=== PATIENT | male | born 2000 | race African-American/Black ===

== ENCOUNTER 2024-06-05 16:39 | Inpatient (IN) ==
[2024-06-05] MEDS: INSULIN REGULAR, HUMAN 1 UNIT/0.01 ML UNIT SQ ONE (17:49)
[2024-06-05 18:02] LABS: POC Calcium, Ionized 1.22 (1.16-1.32); POC Creatinine 0.9 (0.6-1.2); POC Potassium 3.6 (3.3-5.1)
[2024-06-05 18:25] LABS: ALT/SGPT 8 U/L (<40); AST/SGOT 9 U/L (<40); Albumin 4.2 gm/dL (3.2-5.2); Alkaline Phosphatase 198 U/L (39-117); Bilirubin,Direct < 0.2 mg/dL (0-0.3); Bilirubin,Total 0.4 mg/dL (0.1-1.0)
[2024-06-05] MEDS: 0.9 % SODIUM CHLORIDE 1,000 ML IV ONE ×2 (18:31→20:13)
[2024-06-05] MEDS: POTASSIUM CHLORIDE 20 MEQ TABLET PO ONE ×2 (18:31→20:53)
[2024-06-05 19:14] LABS: ALT/SGPT 9 U/L (<40); AST/SGOT 10 U/L (<40); Albumin 4.1 gm/dL (3.2-5.2); Albumin/Globulin Ratio 1.9 (1.0-2.3); Alkaline Phosphatase 196 U/L (39-117); Bilirubin,Total 0.4 mg/dL (0.1-1.0); Blood Urea Nitrogen 11 mg/dL (6-20); Calcium 8.3 mg/dL (8.6-10.4); Carbon Dioxide 6 mmol/L (22-30); Chloride 97 mmol/L (96-108); Globulin 2.2 gm/dL (2.2-3.7); Glomerular Filtration Rate 94; Glucose 709 mg/dL (70-105); Potassium 3.6 mmol/L (3.3-5.1); Sodium 130 mmol/L (133-145)
[2024-06-05] MEDS ORDERED: INSULIN REGULAR, HUMAN 50 UNIT in 0.9 % SODIUM CHLORIDE 99.5 ML IV SCH (19:15)
[2024-06-05] MEDS: INSULIN REGULAR, HUMAN 50 UNIT in 0.9 % SODIUM CHLORIDE 99.5 ML IV SCH (19:28)
[2024-06-05 19:30] LABS: Basophils # (Auto) 0.06 K/mcL (0.00-0.30); Basophils % (Auto) 0.9 % (0.0-2.0); Eosinophils # (Auto) 0.01 K/mcL (0.00-0.70); Eosinophils % (Auto) 0.1 % (0.0-7.0); Hematocrit 37.8 % (40.1-51.0); Hemoglobin 14.1 g/dL (13.7-17.5); Lymphocytes # (Auto) 0.67 K/mcL (1.50-4.80); Lymphocytes % (Auto) 9.9 % (15.5-49.0); Mean Cell Volume 88.3 fL (80.0-100.0); Mean Corpuscular HGB Conc 37.3 g/dL (31.0-36.0); Mean Platelet Volume 10.6 fL (8.8-12.5); Monocytes # (Auto) 0.59 K/mcL (0.10-0.90); Monocytes % (Auto) 8.7 % (1.0-12.0); Neutrophils % (Auto) 79.8 % (38.0-78.0); Platelet Count 210 K/mcL (140-440); RBC 4.28 M/mcL (4.63-6.08); Red Cell Distribution Width 14.6 % (11.5-14.5); WBC 6.8 K/mcL (4.5-11.0)
[2024-06-05 19:36] LABS: Beta Hydroxybutyrate 8.93 mmol/L (<0.27)
[2024-06-05] MEDS ORDERED: DEXTROSE 50% 50 ML VIAL IV PRN ×2 (20:26→20:46)
[2024-06-05] MEDS: DEXTROSE 50% 50 ML VIAL IV PRN (20:52)
[2024-06-05] MEDS: DEXTROSE 50% 50 ML SYRINGE IV ONE (20:54)
[2024-06-05] MEDS: DEXTROSE 5%-1/2NS W/40MEQ KCL 1,000 ML IV SCH (21:02)
[2024-06-05] MEDS: INSULIN GLARGINE, HUMAN 1 UNIT/0.01 ML SQ ONE ×2 (21:06→21:07)
[2024-06-05] MEDS ORDERED: ONDANSETRON 4 MG/2 ML VIAL IV PRN (21:15)
[2024-06-05] MEDS ORDERED: MAGNESIUM HYDROXIDE 30 ML ORAL.SUSP PO PRN (21:15)
[2024-06-05] MEDS ORDERED: SENNOSIDES 1 TABLET PO PRN (21:15)
[2024-06-05 21:17] LABS: Blood Urea Nitrogen 9 mg/dL (6-20); Calcium 7.7 mg/dL (8.6-10.4); Carbon Dioxide 10 mmol/L (22-30); Chloride 108 mmol/L (96-108); Glomerular Filtration Rate 105; Glucose 214 mg/dL (70-105); Sodium 138 mmol/L (133-145)
[2024-06-05 21:19] LABS: Hemoglobin A1C 12.6 % Hgb (4.0-6.0)
[2024-06-05] MEDS: 0.45 % SODIUM CHLORIDE 1,000 ML IV SCH (21:21)
[2024-06-05] MEDS: POTASSIUM CHLORIDE 20 MEQ/10 ML VIAL IV ONE ×2 (21:21→23:24)
[2024-06-05] MEDS ORDERED: POTASSIUM CHLORIDE 40 MEQ in 0.45 % SODIUM CHLORIDE 1,000 ML IV PRN (21:30)
[2024-06-05 21:40] LABS: POC Calcium, Ionized 1.23 (1.16-1.32); POC Creatinine 0.8 (0.6-1.2); POC Potassium 3.1 (3.3-5.1)
[2024-06-05] MEDS: POTASSIUM CHLORIDE 20 MEQ PACKET PO ONE ×2 (21:43→23:06)
[2024-06-05] MEDS: 0.9 % SODIUM CHLORIDE 10 ML SYRINGE IV SCH (21:44)
[2024-06-05] MEDS ORDERED: NICOTINE POLACRILEX 2 MG GUM CHEW/PARK PRN (22:24)
[2024-06-05 22:37] LABS: POC Calcium, Ionized 1.24 (1.16-1.32); POC Creatinine 0.8 (0.6-1.2); POC Potassium 3.5 (3.3-5.1)
[2024-06-05] MEDS: POTASSIUM CHLORIDE 20 MEQ PACKET ONE (23:24)
[2024-06-05 23:49] LABS: POC Calcium, Ionized 1.26 (1.16-1.32); POC Creatinine 0.6 (0.6-1.2)
[2024-06-06] MEDS: POTASSIUM PHOSPHATE 20 MEQ in DEXTROSE 5% IN WATER 250 ML IV ONE (00:36)
[2024-06-06] MEDS: POTASSIUM PHOSPHATE 66 MEQ/15 ML VIAL IV ONE (00:37)
[2024-06-06 04:55] LABS: ALT/SGPT 7 U/L (<40); AST/SGOT 10 U/L (<40); Albumin 3.6 gm/dL (3.2-5.2); Albumin/Globulin Ratio 2.3 (1.0-2.3); Alkaline Phosphatase 140 U/L (39-117); Bilirubin,Direct < 0.2 mg/dL (0-0.3); Bilirubin,Total 0.4 mg/dL (0.1-1.0); Blood Urea Nitrogen 8 mg/dL (6-20); Calcium 8.2 mg/dL (8.6-10.4); Carbon Dioxide 14 mmol/L (22-30); Chloride 111 mmol/L (96-108); Globulin 1.6 gm/dL (2.2-3.7); Glomerular Filtration Rate 126; Glucose 208 mg/dL (70-105); Lactate Dehydrogenase 123 U/L (135-225); Phosphorous 2.5 mg/dL (2.5-4.5); Potassium 3.5 mmol/L (3.3-5.1); Sodium 138 mmol/L (133-145); Triglycerides 603 mg/dL (<150); Uric Acid 1.1 mg/dL (2.5-8.0)
[2024-06-06 06:12] LABS: Basophils # (Auto) 0.03 K/mcL (0.00-0.30); Basophils % (Auto) 0.8 % (0.0-2.0); Eosinophils # (Auto) 0.08 K/mcL (0.00-0.70); Eosinophils % (Auto) 2.1 % (0.0-7.0); Hemoglobin 12.4 g/dL (13.7-17.5); Lymphocytes # (Auto) 1.09 K/mcL (1.50-4.80); Lymphocytes % (Auto) 28.4 % (15.5-49.0); Mean Cell Volume 87.2 fL (80.0-100.0); Mean Corpuscular HGB Conc 37.6 g/dL (31.0-36.0); Mean Platelet Volume 10.2 fL (8.8-12.5); Monocytes # (Auto) 0.45 K/mcL (0.10-0.90); Monocytes % (Auto) 11.7 % (1.0-12.0); Neutrophils % (Auto) 56.5 % (38.0-78.0); Platelet Count 188 K/mcL (140-440); RBC 3.76 M/mcL (4.63-6.08); Red Cell Distribution Width 14.8 % (11.5-14.5); WBC 3.8 K/mcL (4.5-11.0)
[2024-06-06] MEDS: POTASSIUM CHLORIDE 40 MEQ in DEXTROSE 5%-1/2NS 1,000 ML IV SCH (07:56)
[2024-06-06] MEDS: POTASSIUM CHLORIDE 20 MEQ PACKET PO ONE ×5 (07:56→23:11)
[2024-06-06 08:04] LABS: HDL Cholesterol 35 mg/dL (>40); Non-HDL Cholesterol 153 mg/dL (<130); Triglycerides 588 mg/dL (<150)
[2024-06-06] MEDS: INSULIN GLARGINE, HUMAN 1 UNIT/0.01 ML SQ SCH (08:56)
[2024-06-06] MEDS: ENOXAPARIN 40 MG/0.4 ML SYRINGE SQ SCH (08:57)
[2024-06-06 09:00] LABS: Blood Urea Nitrogen 8 mg/dL (6-20); Calcium 8.3 mg/dL (8.6-10.4); Carbon Dioxide 14 mmol/L (22-30); Chloride 112 mmol/L (96-108); Glomerular Filtration Rate 133; Glucose 169 mg/dL (70-105); Potassium 4.3 mmol/L (3.3-5.1); Sodium 137 mmol/L (133-145)
[2024-06-06] MEDS: ACETAMINOPHEN 325 MG TABLET PO PRN (11:03)
[2024-06-06 13:19] LABS: Blood Urea Nitrogen 11 mg/dL (6-20); Calcium 8.1 mg/dL (8.6-10.4); Carbon Dioxide 16 mmol/L (22-30); Chloride 111 mmol/L (96-108); Glomerular Filtration Rate 133; Glucose 229 mg/dL (70-105); Potassium 3.4 mmol/L (3.3-5.1); Sodium 137 mmol/L (133-145)
[2024-06-06] MEDS: POTASSIUM CHLORIDE 20 MEQ PACKET PO SCH (14:06)
[2024-06-06] MEDS: DEXTROSE 50% 50 ML SYRINGE IV ONE ×2 (16:26→23:00)
[2024-06-06 17:16] LABS: Blood Urea Nitrogen 10 mg/dL (6-20); Calcium 8.7 mg/dL (8.6-10.4); Carbon Dioxide 16 mmol/L (22-30); Chloride 112 mmol/L (96-108); Glomerular Filtration Rate 133; Glucose 139 mg/dL (70-105); Sodium 140 mmol/L (133-145)
[2024-06-06 21:09] LABS: Blood Urea Nitrogen 11 mg/dL (6-20); Calcium 8.5 mg/dL (8.6-10.4); Carbon Dioxide 20 mmol/L (22-30); Chloride 109 mmol/L (96-108); Glomerular Filtration Rate 142; Glucose 146 mg/dL (70-105); Potassium 3.2 mmol/L (3.3-5.1); Sodium 139 mmol/L (133-145)
[2024-06-06 21:58] LABS: POC Calcium, Ionized 1.24 (1.16-1.32); POC Creatinine 0.6 (0.6-1.2); POC Potassium 3.4 (3.3-5.1)
[2024-06-06] MEDS: INSULIN REGULAR, HUMAN 1 UNIT/0.01 ML UNIT IV ONE (22:59)
[2024-06-06] MEDS: INSULIN REGULAR, HUMAN 1 UNIT/0.01 ML UNIT ONE (22:59)
[2024-06-06] MEDS: POTASSIUM CHLORIDE 20 MEQ PACKET ONE (23:00)
[2024-06-07 01:48] LABS: Blood Urea Nitrogen 13 mg/dL (6-20); Calcium 8.5 mg/dL (8.6-10.4); Carbon Dioxide 18 mmol/L (22-30); Chloride 109 mmol/L (96-108); Glomerular Filtration Rate 133; Glucose 150 mg/dL (70-105); Potassium 3.6 mmol/L (3.3-5.1); Sodium 136 mmol/L (133-145)
[2024-06-07] MEDS: POTASSIUM CHLORIDE 20 MEQ PACKET PO ONE ×2 (02:06→08:29)
[2024-06-07] MEDS: POTASSIUM CHLORIDE 20 MEQ PACKET ONE (02:17)
[2024-06-07] MEDS: DEXTROSE 50% 50 ML SYRINGE IV ONE (05:23)
[2024-06-07 06:24] LABS: Basophils # (Auto) 0.03 K/mcL (0.00-0.30); Basophils % (Auto) 0.8 % (0.0-2.0); Eosinophils # (Auto) 0.07 K/mcL (0.00-0.70); Eosinophils % (Auto) 1.8 % (0.0-7.0); Hematocrit 35.1 % (40.1-51.0); Hemoglobin 13.2 g/dL (13.7-17.5); Lymphocytes # (Auto) 1.43 K/mcL (1.50-4.80); Lymphocytes % (Auto) 37.2 % (15.5-49.0); Mean Cell Volume 88.2 fL (80.0-100.0); Mean Corpuscular HGB Conc 37.6 g/dL (31.0-36.0); Mean Platelet Volume 10.7 fL (8.8-12.5); Monocytes # (Auto) 0.42 K/mcL (0.10-0.90); Monocytes % (Auto) 10.9 % (1.0-12.0); Neutrophils % (Auto) 48.8 % (38.0-78.0); Platelet Count 172 K/mcL (140-440); RBC 3.98 M/mcL (4.63-6.08); Red Cell Distribution Width 15.1 % (11.5-14.5); WBC 3.8 K/mcL (4.5-11.0)
[2024-06-07 06:41] LABS: ALT/SGPT 10 U/L (<40); AST/SGOT 31 U/L (<40); Albumin 3.4 gm/dL (3.2-5.2); Albumin/Globulin Ratio 2.6 (1.0-2.3); Alkaline Phosphatase 123 U/L (39-117); Bilirubin,Direct < 0.2 mg/dL (0-0.3); Bilirubin,Total 0.4 mg/dL (0.1-1.0); Blood Urea Nitrogen 12 mg/dL (6-20); Calcium 8.8 mg/dL (8.6-10.4); Carbon Dioxide 18 mmol/L (22-30); Chloride 111 mmol/L (96-108); Globulin 1.3 gm/dL (2.2-3.7); Glomerular Filtration Rate 133; Glucose 102 mg/dL (70-105); Lactate Dehydrogenase 136 U/L (135-225); Phosphorous 1.9 mg/dL (2.5-4.5); Potassium 3.5 mmol/L (3.3-5.1); Sodium 140 mmol/L (133-145); Triglycerides 212 mg/dL (<150); Uric Acid 0.6 mg/dL (2.5-8.0)
[2024-06-07] MEDS ORDERED: DEXTROSE 5%-1/2NS W/40MEQ KCL 1,000 ML IV SCH (07:45)
[2024-06-07] MEDS: SODIUM BICARBONATE 50 MEQ/50 ML VIAL IV SCH (08:08)
[2024-06-07] MEDS: POTASSIUM CHLORIDE 40 MEQ in DEXTROSE 5%-1/2NS 1,000 ML IV SCH (10:40)
[2024-06-07 10:47] LABS: Blood Urea Nitrogen 9 mg/dL (6-20); Calcium 8.7 mg/dL (8.6-10.4); Carbon Dioxide 23 mmol/L (22-30); Chloride 106 mmol/L (96-108); Glomerular Filtration Rate 133; Glucose 307 mg/dL (70-105); Potassium 4.5 mmol/L (3.3-5.1); Sodium 137 mmol/L (133-145)
[2024-06-07] MEDS: INSULIN REGULAR, HUMAN 1 UNIT/0.01 ML UNIT IV SCH ×2 (11:26→13:10)
[2024-06-07] MEDS: INSULIN REGULAR, HUMAN 1 UNIT/0.01 ML UNIT IV ONE ×2 (12:16→14:17)
[2024-06-07] MEDS ORDERED: DEXTROSE 31 GM ORAL.SUSP PO PRN (12:26)
[2024-06-07] MEDS ORDERED: DEXTROSE 50% 50 ML VIAL IV PRN (12:26)
[2024-06-07] MEDS: INSULIN GLARGINE, HUMAN 1 UNIT/0.01 ML SQ ONE (12:58)
[2024-06-07 14:20] LABS: Blood Urea Nitrogen 10 mg/dL (6-20); Calcium 8.8 mg/dL (8.6-10.4); Carbon Dioxide 24 mmol/L (22-30); Chloride 107 mmol/L (96-108); Glomerular Filtration Rate 133; Glucose 345 mg/dL (70-105); Potassium 4.2 mmol/L (3.3-5.1); Sodium 138 mmol/L (133-145)
[2024-06-07] MEDS: INSULIN LISPRO 1 UNIT/0.01 ML UNIT SQ SCH ×2 (17:06→17:08)
[2024-06-07 18:37] LABS: Blood Urea Nitrogen 9 mg/dL (6-20); Calcium 8.4 mg/dL (8.6-10.4); Carbon Dioxide 24 mmol/L (22-30); Chloride 105 mmol/L (96-108); Glomerular Filtration Rate 133; Glucose 304 mg/dL (70-105); Potassium 3.3 mmol/L (3.3-5.1); Sodium 138 mmol/L (133-145)
[2024-06-08 06:47] LABS: Basophils # (Auto) 0.03 K/mcL (0.00-0.30); Basophils % (Auto) 0.8 % (0.0-2.0); Eosinophils # (Auto) 0.04 K/mcL (0.00-0.70); Eosinophils % (Auto) 1.1 % (0.0-7.0); Hematocrit 36.9 % (40.1-51.0); Hemoglobin 13.2 g/dL (13.7-17.5); Lymphocytes # (Auto) 0.94 K/mcL (1.50-4.80); Mean Cell Volume 92.7 fL (80.0-100.0); Mean Corpuscular HGB Conc 35.8 g/dL (31.0-36.0); Mean Platelet Volume 10.9 fL (8.8-12.5); Monocytes % (Auto) 13.9 % (1.0-12.0); Neutrophils % (Auto) 57.9 % (38.0-78.0); Platelet Count 164 K/mcL (140-440); RBC 3.98 M/mcL (4.63-6.08); Red Cell Distribution Width 15.1 % (11.5-14.5); WBC 3.6 K/mcL (4.5-11.0)
[2024-06-08 07:44] LABS: ALT/SGPT 14 U/L (<40); AST/SGOT 27 U/L (<40); Albumin 3.4 gm/dL (3.2-5.2); Alkaline Phosphatase 122 U/L (39-117); Bilirubin,Direct < 0.2 mg/dL (0-0.3); Bilirubin,Total 0.5 mg/dL (0.1-1.0); Blood Urea Nitrogen 12 mg/dL (6-20); Calcium 8.2 mg/dL (8.6-10.4); Carbon Dioxide 25 mmol/L (22-30); Chloride 103 mmol/L (96-108); Globulin 1.7 gm/dL (2.2-3.7); Glomerular Filtration Rate 142; Glucose 273 mg/dL (70-105); Lactate Dehydrogenase 150 U/L (135-225); Phosphorous 3.3 mg/dL (2.5-4.5); Potassium 3.3 mmol/L (3.3-5.1); Sodium 139 mmol/L (133-145); Triglycerides 218 mg/dL (<150); Uric Acid 0.7 mg/dL (2.5-8.0)
[2024-06-08] MEDS: INSULIN LISPRO 1 UNIT/0.01 ML UNIT SQ SCH ×2 (11:03→12:02)
[2024-06-08] MEDS: INSULIN GLARGINE, HUMAN 1 UNIT/0.01 ML SQ SCH ×2 (11:03→11:10)
[2024-06-09] MEDS ORDERED: INSULIN GLARGINE, HUMAN 1 UNIT/0.01 ML SQ SCH (09:00)
[2024-06-09 11:11] LABS: Islet Cell Antibody Titer Negative (Neg:<1:1)
== END 2024-06-08 13:05 | disposition home or self-care (01) | DRG 639 ==
LOC: ED 16:39 → ICU 21:11
PROVIDERS: ADMIT Student in an Organized Health Care Education/Training Program; ATTEND Student in an Organized Health Care Education/Training Program